=== PATIENT | female | born 1975 | race African-American/Black ===

== ENCOUNTER 2017-03-26 02:47 | Emergency (ER) | payer OTHER ==
[~2017-03-26] VITALS: Ht 165.1 cm; Wt 99.2 kg
[2017-03-26 03:20] LABS: HEMATOCRIT 43.5 % (36.0-46.0); HEMOGLOBIN 14.3 G/DL (11.9-15.5); MCH 30.4 PG (29.0-34.0); MCHC 32.9 G/DL (30.0-36.0); MCV 92.6 FL (83-99); PLATELET COUNT 280 K/uL (156-360); RBC DIS.WIDTH-CV 11.9 % (11.8-14.6); RBC DIS.WIDTH-SD 41.1 % (39-53)
[2017-03-26 03:31] LABS: CHLORIDE 105 mEq/L (99-109); SODIUM 137 mEq/L (136-147)
[2017-03-26 03:32] LABS: GLUCOSE 95 mg/dL (70-99)
[2017-03-26 03:36] LABS: CREATININE 0.8 mg/dL (0.6-1.3); GFR ESTIMATE (CALCULATED) > 59 mL/min/
[2017-03-26 03:37] LABS: UREA NITROGEN (BUN) 10 mg/dL (9-23)
[2017-03-26 03:43] LABS: TROP-I INTERPRETATION NEGATIVE; TROPONIN-I < 0.01 ng/mL (0.0-0.30)
[2017-03-26 05:55] VITALS: BP 100/68
== END 2017-03-26 05:55 | disposition home or self-care (01) ==
LOC: EME 02:47
DX: R07.9 Chest pain, unspecified (principal); R20.2 Paresthesia of skin; F17.200 Nicotine dependence, unspecified, uncomplicated
CPT/HCPCS: 71046; 80048; 84484; 85027; 93005; 99281; 99284